=== PATIENT | male | born 1995 | race Asian ===

== ENCOUNTER 2017-08-19 18:59 | Emergency (ER) | payer BC ==
[2017-08-19] MEDS ORDERED: Ibuprofen TAB* 600 MG PO ONE (21:02)
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
[2017-08-19 23:10] VITALS: BP 131/68
== END 2017-08-19 23:08 | disposition home or self-care (01) ==
LOC: ED 18:59
DX: S01.511A Laceration without foreign body of lip, initial encounter (principal); S01.81XA Laceration without foreign body of other part of head, initial encounter; W50.0XXA Accidental hit or strike by another person, initial encounter; Y93.89 Activity, other specified; Y92.34 Swimming pool (public) as the place of occurrence of the external cause
CPT/HCPCS: 12011; 99281; A9270-GY